=== PATIENT | female | born 1990 | race Caucasian/White ===

== ENCOUNTER → 2020-10-04 13:24 | Outpatient (CLI) | payer SELFPAY ==
[2020-10-04 15:57] LABS: Absolute Lymphocyte Count 1.56 X10^3/uL (0.83-4.51); Basophil# 0.02 X10^3/uL; Basophil% 0.2 % (0-1); Eosinophil# 0.04 X10^3/uL; Eosinophils% 0.5 % (0-5); Hematocrit 35.5 % (37-47); Hemoglobin 11.9 g/dL (12.0-15.0); Lymphocyte # 1.56 X10^3/ul (0.83-4.51); Lymphocyte % 18.8 % (19-41); Mean Corp Hgb Conc 33.5 g/dL (32-36); Mean Corpuscular Hgb 30.7 pg (27.0-32.0); Mean Corpuscular Volume 91.5 fL (81-99); Mean Platelet Vol. 11.3 fl (6.2-12.0); Monocyte# 0.61 X10^3/uL; Monocyte% 7.4 % (0-10); NRBC Flagged by Analyzer 0 % (0-5); Neutrophil # 6.03 X10^3/uL (2.7-7.7); Neutrophil % 72.9 % (47-70); Platelet Count 215 K/mm3 (150-450); RBC Distribution Width CV 12.1 % (11.6-14.6); RBC Distribution Width SD 40.2 fl (35.1-43.9); Red Blood Count 3.88 M/mm3 (4.2-5.4); White Blood Count 8.3 K/mm3 (4.4-11.0)
[2020-10-04 16:02] LABS: Color, Urine Straw (Yellow); Glucose, Dipstick Normal (Normal); Ketone-Dipstick Negative (Negative); Leukocyte Esterase-Dipstick Negative /ul (Negative); Nitrite-Dipstick Negative (Negative); Occult Blood-Urine 50 /ul (Negative); Protein-Dipstick Negative (Negative); Specific Gravity, Urine 1.005 (1.002-1.030); Urine Bilirubin Dipstick Negative (Negative); Urine Clarity Clear (Clear); Urine Urobilinogen Normal (Normal)
[2020-10-04 16:13] LABS: Thyroid Stim Hormone (TSH) 0.07 uIU/mL (0.358-3.74)
[2020-10-05 08:56] LABS: HIV - WCH Non-Reactive (Nonreactive); Hepatitis B Surface Antigen Non-Reactive (Nonreactive); Hepatitis C Antibody Non-Reactive (Nonreactive); Rubella IgG Reactive (Nonreactive); Syphilis Antibodies Non-reactive
[2020-10-08 04:06] LABS: Chlamydia By Nucleic Acid AMP Negative (Negative)
[2020-10-11 14:57] LABS: Gonococcus By Nucleic Acid AMP Negative (Negative)
== END ==
PROVIDERS: Visit Provider Obstetrics & Gynecology
DX: Z32.01 Encounter for pregnancy test, result positive (principal)
CPT/HCPCS: 36415; 81002; 84443; 85025; 86703; 86762; 86780; 86803; 87340; 87491; 87591

== ENCOUNTER → 2020-10-29 15:07 | Outpatient (CLI) | payer SELFPAY ==
[2020-10-29 16:03] LABS: T4 Free Direct 1.26 ng/dL (0.76-1.46)
== END ==
PROVIDERS: Visit Provider Obstetrics & Gynecology
DX: Z34.81 Encounter for supervision of other normal pregnancy, first trimester (principal); E03.9 Hypothyroidism, unspecified
CPT/HCPCS: 36415; 84439

== ENCOUNTER → 2021-02-15 12:23 | Outpatient (CLI) | payer MEDICAID, SELFPAY | PROVIDERS: Visit Provider Student in an Organized Health Care Education/Training Program | DX: O23.90 Unspecified genitourinary tract infection in pregnancy, unspecified trimester (principal); Z3A.00 Weeks of gestation of pregnancy not specified | CPT/HCPCS: 87086; 87088; C9803 ==

== ENCOUNTER → 2021-02-25 13:03 | Outpatient (CLI) | payer MEDICAID, SELFPAY ==
[2021-02-25 13:22] LABS: Hematocrit 31.5 % (37-47); Hemoglobin 10.9 g/dL (12.0-15.0); Mean Corp Hgb Conc 34.6 g/dL (32-36); Mean Corpuscular Hgb 32.1 pg (27.0-32.0); Mean Corpuscular Volume 92.6 fL (81-99); Mean Platelet Vol. 10.1 fl (6.2-12.0); Platelet Count 178 K/mm3 (150-450); RBC Distribution Width CV 12.2 % (11.6-14.6); RBC Distribution Width SD 41.7 fl (35.1-43.9); White Blood Count 8.8 K/mm3 (4.4-11.0)
[2021-02-25 13:43] LABS: Glucose Challenge Gest 1H 50g 122 mg/dL (70-140)
== END ==
PROVIDERS: Visit Provider Obstetrics & Gynecology
DX: Z34.83 Encounter for supervision of other normal pregnancy, third trimester (principal)
CPT/HCPCS: 36415; 82950; 85027; 86850

== ENCOUNTER 2021-04-22 09:22 | Outpatient (CLI) | payer MEDICAID, SELFPAY | END 2021-04-22 23:59 | disposition short-term general hospital (02) | LOC: LABSPEC 09:23 | PROVIDERS: Visit Provider Obstetrics & Gynecology | DX: Z36.85 Encounter for antenatal screening for Streptococcus B (principal) | CPT/HCPCS: 87081 ==

== ENCOUNTER 2021-05-13 07:05 | Inpatient (IN) | payer MEDICAID, SELFPAY ==
[2021-05-13] VITALS (23 sets, daily range): BP systolic 107–131; BP diastolic 57–82; PULSE 81–110; RESP 18; TEMP 36.2–37.3; O2SAT 98–100; BMI 32.9
--- NOTE | 2021-05-13 07:36 | HP.PCM.OB_ITS ---
History and Physical Date of Admission: 05/13/21 Chief complaint: Induction of labor polyhydramnios History of present illness: 31-year-old G4, P2 at 39 weeks and 2 days with JHOAN: 05/18/2021 arrives for induction of labor for polyhydramnios. Denies headache, visual changes, chest pain, shortness of breath, nausea vomiting, right upper quadrant pain. Patient states good movement. is complicated by maternal PKU, polyhydramnios Obstetric history: G1: SAB G2: 40-week male 03/20/2018 G3: 39-week 06/15/2019 4: Current Past medical history: None Past surgical history: [place] teeth extraction, tonsils and adenoids Medications: None Allergies: No known drug allergies Social history: Denies smoking, alcohol use, drug use Family history: Denies history DVT or PE Review of systems: Besides above pertinent positives a full review of systems was performed and found to be negative Physical exam: Vital signs: Pending General: Normal-appearing no acute distress HEENT: Normocephalic/atraumatic no cervical lymphadenopathy Cardiac/respiratory: No use of accessory muscles, nonlabored breathing Abdomen: Soft, nontender, gravid Pelvic: Cervical exam closed/thick/high Extremities: No peripheral edema normal pulses Psych: Normal affect normal demeanor nonpressured speech Labs: Pending Assessment and plan: 31-year-old at 39 weeks and 2 days for induction of labor for polyhydramnios Admit labor and delivery See EFM GBS negative Cytotec induction PKU: Notify stamping machine operator Routine orders Anesthesia to see
[2021-05-13] MEDS: 0.9% Saline Lock 10 ML Syringe IV (07:45)
[2021-05-13 08:18] LABS: Absolute Lymphocyte Count 1.71 X10^3/uL (0.83-4.51); Absolute Neutrophil Count 4.4 X10^3/uL (2.0-7.7); Basophil# 0.01 X10^3/uL; Basophil% 0.1 % (0-1); Eosinophil# 0.07 X10^3/uL; Hematocrit 31.1 % (37-47); Hemoglobin 9.9 g/dL (12.0-15.0); Lymphocyte # 1.71 X10^3/ul (0.83-4.51); Lymphocyte % 24.5 % (19-41); Mean Corp Hgb Conc 31.8 g/dL (32-36); Mean Corpuscular Hgb 28.2 pg (27.0-32.0); Mean Corpuscular Volume 88.6 fL (81-99); Mean Platelet Vol. 10.8 fl (6.2-12.0); Monocyte# 0.73 X10^3/uL; Monocyte% 10.4 % (0-10); NRBC Flagged by Analyzer 0 % (0-5); Neutrophil # 4.43 X10^3/uL (2.7-7.7); Neutrophil % 63.4 % (47-70); Platelet Count 158 K/mm3 (150-450); RBC Distribution Width SD 42.1 fl (35.1-43.9); Red Blood Count 3.51 M/mm3 (4.2-5.4)
[2021-05-13] MEDS: miSOPROStol 25 MCG TABLET VAGINAL (08:18)
--- NOTE | 2021-05-13 12:22 | PN_ITS ---
Progress Note AROM small amount clear fluid. CE /-3. FHR 145/mod parrish/+accel/no decel. [place] irregular. Plan to change induction medication to pitocin.
--- NOTE | 2021-05-13 12:22 | PCM.PN.BLA ---
Progress Note AROM small amount clear fluid. CE /-3. FHR 145/mod parrish/+accel/no decel. [place] irregular. Plan to change induction medication to pitocin.
[2021-05-13] MEDS: Oxytocin 30 units/NS 500 ml 30 UNITS/500 ML IV.SOLN 334 UNITS IV (18:22)
[2021-05-13] MEDS: Methylergonovine 0.2 MG/ML Ampul IM (18:27)
--- NOTE | 2021-05-13 18:48 | EX.PCM.OBRPT ---
Maternal Data Information Final JHOAN: 05/18/21 Vaginal Delivery Operative Information Date of Procedure: 05/13/21 Pre-Operative Diagnosis: [place] Intrauterine , Polyhydramnios Post-Operative Diagnosis: [place] Intrauterine , Polyhydramnios, Shoulder dystocia Surgery / Procedure Performed: Spontaneous Vaginal Delivery Type of Anesthesia: None Estimated Blood Loss: 500cc Findings Description of Procedure: 31 yo at 39/2w, admitted for induction of labor at term for patient polyhydramnios. Progressed through labor and reached 10 cm dilation. Pushing efforts made. Patient delivered head at which time shoulder dystocia was diagnosed. Patient was told to stop pushing and was placed in [place] position. Suprapubic pressure was then provided towards maternal left. This did not relieve shoulder dystocia. Potato Sorter and respiratory were called. Nuchal cord was noted to be loose and reduced. Attempt to release posterior arm was made. Followed by rotational movements of shoulders. Shoulder dystocia was not relieved. Additional attempt for posterior arm was made, unsuccessful. Midline episiotomy was cut. Again suprapubic pressure was provided, and shoulders were then delivered followed by body. Cord clamped and cut immediately and baby passed to waiting ultrasonic hand solderer for resuscitation and evaluation. During delivery and maneuvers request for Dr. Oscar Jackson to be present for assistance was made, however baby was delivered prior to her requested arrival. Placenta was spontaneously delivered. Second-degree perineal laceration was noted, primarily affecting perineal skin. Superficial transverse perineal muscles were reapproximated with [id number] stitch. Skin closed with running subcuticular stitch. Hemostatic. Rectal exam completed after repair, noting intact rectal mucosa and sphincter. IM Methergine given. Baby moving all extremities equally. Examined by ultrasonic hand solderer. Discussed shoulder dystocia, importance of notifying future providers, and potential consequences. Discussed risk of clavicle injury and brachial plexus injury, of which most resolve. Discussed that baby will be monitored by ultrasonic hand solderer. Events and maneuvers discussed with patient and , discussed episiotomy and white was performed. Patient informed that sutures will dissolve on their own without need for removal and the degree of her laceration. All questions were answered. Cord Gases: ABG and VBG A Gender: Female (1 minute): 7 (5 minute): 9
[2021-05-13] MEDS: Acetaminophen 500 MG Tablet 1000 MG PO (19:23)
[2021-05-13] MEDS: Ibuprofen 600 MG Tablet PO (19:23)
[2021-05-14] VITALS (8 sets, daily range): BP systolic 111–116; BP diastolic 56–65; PULSE 81–93; RESP 14–16; TEMP 36.3–36.9; O2SAT 99–100
[2021-05-14] MEDS: Ibuprofen 600 MG Tablet PO ×2 (02:27→15:02)
[2021-05-14] MEDS: 0.9% Saline Lock 10 ML Syringe IV (02:28)
[2021-05-14 05:33] LABS: Hematocrit 27.7 % (37-47); Hemoglobin 9.2 g/dL (12.0-15.0); Mean Corp Hgb Conc 33.2 g/dL (32-36); Mean Corpuscular Hgb 29.6 pg (27.0-32.0); Mean Corpuscular Volume 89.1 fL (81-99); Mean Platelet Vol. 10.6 fl (6.2-12.0); Platelet Count 146 K/mm3 (150-450); RBC Distribution Width SD 42.1 fl (35.1-43.9); Red Blood Count 3.11 M/mm3 (4.2-5.4); White Blood Count 11.8 K/mm3 (4.4-11.0)
[2021-05-14] MEDS: Acetaminophen 500 MG Tablet 1000 MG PO (08:08)
[2021-05-14] MEDS: Senna/Docusate Sodium 1 Tablet PO (08:09)
[2021-05-14] MEDS: Benzocaine/Lanolin/Aloe Vera 1 SPRAY EACH TOPICAL (08:09)
--- NOTE | 2021-05-14 09:18 | PCM.DC.SUM ---
Providers Date of Admission: 05/13/21 Primary Care Physician: Dr. Shana Villela DO Reason For Visit: VAGINAL DELIVERY Diagnosis Discharge Diagnosis (1) (spontaneous vaginal delivery): Status: Acute Code(s): O80 - Encounter for full-term uncomplicated delivery Medications at Discharge Home Medications [id number] 1 tab PO DAILY 05/13/21 ibuprofen 600 mg PO Q8H PRN PRN #30 tab 05/14/21 Hospital Course Operations None Procedures None Summary of Care Provided Hospital Course: 31yo with history of PKU presented at 39 2/7 weeks gestation for scheduled induction for polyhydramnios. She had a vaginal delivery complicated by shoulder dystocia with midline episiotomy. Her course was unremarkable. She was discharged to home on day #1. Physical Exam Narrative no complaints this morning Const alert, oriented x3 and no apparent distress General Appearance: cooperative and comfortable HEENT normocephalic Resp Auscultation: clear to auscultation bilaterally Cardio regular rate, regular rhythm, S1 normal heart sound and S2 normal heart sound Narrative: lochia moderate OB / External & Speculum: other Uterus Palpation: other OB Fundus firm and nontender Extremity General Extremity: edema bilateral Weight / BMI Weight Weight: 81.7 kg Body Mass Index (BMI) 32.9 ABG / Lab / Microbiology Data Result Diagrams: 05/14/21 05:20 Laboratory: Laboratory Results - last 24 hr 05/13/21 07:45: Blood Type A NEGATIVE, Antibody Screen NEGATIVE 05/13/21 20:55: Screen NEGATIVE, Baby's Blood Type A POSITIVE, Baby's CARLOS NEGATIVE 05/14/21 05:20: WBC 11.8 H, RBC 3.11 L, Hgb 9.2 L, Hct 27.7 L, MCV 89.1, MCH 29.6, MCHC 33.2, RDW Std Deviation 42.1, RDW Coeff of Kai 13.0, Plt Count 146 L, MPV 10.6 Microbiology: Microbiology 05/13/21 08:20 Nasal Secretion SARS-CoV-2 Antigen (Rapid) - Final D/C Instructions Discharge Diet: No restrictions Discharge Activity: Return to Normal Activity and May Take a Tub Bath May resume sexual activity in: 6 weeks Lifting Restrictions: 20-25 lb Call your doctor if you observe: Fever of 101 or Higher, Inability to urinate, Using more than 1 pad per hour, Shortness of breath, Chest pain, Calf discomfort, Uncontrolled pain and - (Persistent or severe headache, vision changes) Please Follow Up With: Deuce Espinoza MD When: 3 weeks for telehealth follow up 6 weeks for visit Meaningful Use Info Meaningful Use Diagnoses (Choose all that apply): None applicable Discharge Plan Admission Admit Date/Time: 05/13/21 07:05 Primary Reason for Your Visit: Vaginal delivery Attending Provider: Charline Moncada Primary Care Provider: Shana Villela Discharge Orders/Prescriptions Prescriptions: New ibuprofen 600 mg Tablet 600 mg PO Q8H PRN PRN (Reason: Pain Score 1-3) Qty: 30 RF: 0 Continued [id number] 1 mg Tablet 1 tab PO DAILY RF: 0 Referrals / Follow Up: Shana Villela DO [Primary Care Provider] - Disposition Disposition (needs filled in before D/C Order can be placed): Home, Self Care
--- NOTE | 2021-05-14 10:38 | NURSING ---
late entry- Dr Moncada spoke with family about delivery and procedures performed for of baby before leaving the room. See note.
== END 2021-05-14 19:40 | disposition home or self-care (01) | DRG 560 ==
PROVIDERS: Admitting Provider Student in an Organized Health Care Education/Training Program; PCP Family Medicine; Referring Provider Student in an Organized Health Care Education/Training Program; Visit Provider Student in an Organized Health Care Education/Training Program
DX: O40.3XX0 Polyhydramnios, third trimester, not applicable or unspecified (principal); Z37.0 Single live birth; O66.0 Obstructed labor due to shoulder dystocia; O69.81X0 Labor and delivery complicated by cord around neck, without compression, not applicable or unspecified; O70.1 Second degree perineal laceration during delivery; Z3A.39 39 weeks gestation of pregnancy; O99.02 Anemia complicating childbirth
CPT/HCPCS: 59025; 59050; 85025; 85027; 85461; 86850; 86900; 86901; 87426; 90384; 99218; A4216; G0378; J2790

== ENCOUNTER → 2022-02-27 | Outpatient (CLI) | payer MEDICAID, SELFPAY | END | disposition home or self-care (01) | PROVIDERS: PCP Family Medicine; Visit Provider Obstetrics & Gynecology | DX: Z12.4 Encounter for screening for malignant neoplasm of cervix (principal) | CPT/HCPCS: 87624; 88175; G0145 ==